=== PATIENT | female | born 1980 | race African-American/Black ===

== ENCOUNTER 2017-12-27 20:39 | Emergency (ER) | payer SELFPAY ==
[~2017-12-27] VITALS: Ht 167.6 cm; Wt 133.4 kg
[2017-12-27 22:25] LABS: HEMATOCRIT 38.9 % (37.0-47.0); HEMOGLOBIN 12.1 g/dl (12.0-16.0); IMMATURE GRANULOCYTES 0.4 % (0.0-1.0); MEAN CELL VOLUME 73.8 fL CALC (80.0-100.0); MEAN CORPUSCULAR HGB CONC 31.1 g/L CALC (32.0-36.0); NEUT# 6.92 thou/uL (2.00-7.15); RED BLOOD COUNT 5.27 mill/uL (4.20-5.60); RED CELL DISTRI WIDTH 13.7 % (11.5-15.5)
[2017-12-27 22:35] LABS: INFLUENZA A NONE DETECTED (NONE DETECT); INFLUENZA B NONE DETECTED (NONE DETECT)
[2017-12-27 23:11] VITALS: BP 130/81
== END 2017-12-27 23:27 | disposition home or self-care (01) | DRG 866 ==
LOC: ED 20:39
PROVIDERS: Family Medicine
DX: B34.9 Viral infection, unspecified (principal); E11.9 Type 2 diabetes mellitus without complications; I10 Essential (primary) hypertension

== ENCOUNTER 2018-04-04 18:44 | Emergency (ER) | payer OTHER ==
[~2018-04-04] VITALS: Ht 167.6 cm; Wt 131.0 kg
[2018-04-04] MEDS ORDERED: TRAMADOL HCL50 MG PO (19:06)
[2018-04-04] MEDS ORDERED: MOTRIN800 MG PO (19:06)
[2018-04-04] MEDS ORDERED: CLINDAMYCIN300 M1 PO (19:06)
[2018-04-04 19:44] VITALS: BP 120/62
== END 2018-04-04 19:25 | disposition home or self-care (01) | DRG 159 ==
LOC: ED 18:44
DX: K02.9 Dental caries, unspecified (principal); K04.7 Periapical abscess without sinus; I10 Essential (primary) hypertension; E11.9 Type 2 diabetes mellitus without complications

== ENCOUNTER 2020-02-12 | Emergency (ER) | payer SELFPAY ==
[~2020-02-12] MED LIST: CLINDAMYCIN300 M1 PO; MOTRIN800 MG PO; TRAMADOL HCL50 MG PO
[2020-02-12 19:35] LABS: HEMATOCRIT 39.2 % (37.0-47.0); IMMATURE GRANULOCYTES 0.3 % (0.0-5.0); MEAN CELL VOLUME 73.8 fL CALC (80.0-100.0); MEAN CORPUSCULAR HGB 22.6 pG CALC (26.0-32.0); MEAN CORPUSCULAR HGB CONC 30.6 g/dL CAL (32.0-36.0); NEUT# 5.5 thou/uL (2.00-7.15); RED BLOOD COUNT 5.31 mill/uL (4.20-5.60)
[2020-02-12 19:52] LABS: ALBUMIN 3.9 g/dL (3.2-5.0); ALKALINE PHOSPHATASE 113 u/l (38-126); ANION GAP 15 (6-22 (CALC)); BILIRUBIN, TOTAL 0.3 mg/dL (0.0-1.4); BUN 8 mg/dL (7-17); BUN/CREATININE RATIO 14 (12-20 (CALC)); CARBON DIOXIDE 24 mmol/l (22-30); CHLORIDE 99 mmol/l (95-108); CREATININE 0.5 mg/dL (0.5-1.0); GFR > 60 ML/MIN (>=60 (CALC)); GFR FOR AFR.AMER. > 60 ML/MIN (>=60 (CALC)); SGOT/AST 40 u/l (14-36); SODIUM 133 mmol/l (137-146); TOTAL PROTEIN 7.9 g/dL (6.3-8.2)
[2020-02-12] MEDS ORDERED: LORTAB 1010 MG PO (20:03)
[2020-02-12] MEDS ORDERED: BACTRIM DS1 TAB PO (20:03)
== END 2020-02-12 20:15 | disposition home or self-care (01) | DRG 603 ==
PROVIDERS: Emergency Medicine
PROC: 0H9MXZZ Drainage of Right Foot Skin, External Approach (ICD-10-PCS; principal; 2020-02-12)
DX: L02.611 Cutaneous abscess of right foot (principal); I10 Essential (primary) hypertension; E11.9 Type 2 diabetes mellitus without complications; B95.7 Other staphylococcus as the cause of diseases classified elsewhere

== ENCOUNTER 2020-03-14 09:57 | Emergency (ER) | payer SELFPAY ==
[~2020-03-14] VITALS: Ht 167.6 cm; Wt 95.5 kg
[~2020-03-14 09:57] MED LIST changes: +BACTRIM DS1 TAB PO; +LORTAB 1010 MG PO
[2020-03-14] MEDS ORDERED: ULTRAM50 MG PO (10:26)
[2020-03-14 10:47] VITALS: BP 144/74
== END 2020-03-14 10:44 | disposition home or self-care (01) | DRG 552 ==
LOC: ED 09:57
DX: M54.31 Sciatica, right side (principal); I10 Essential (primary) hypertension; E11.9 Type 2 diabetes mellitus without complications

== ENCOUNTER 2020-07-25 21:16 | Emergency (ER) | payer BC ==
[~2020-07-25] VITALS: Ht 167.6 cm; Wt 124.4 kg
[~2020-07-25 21:16] MED LIST changes: +ULTRAM50 MG PO
[2020-07-25 22:16] LABS: HEMATOCRIT 37.6 % (37.0-47.0); HEMOGLOBIN 11.3 g/dl (12.0-16.0); IMMATURE GRANULOCYTES 0.2 % (0.0-5.0); MEAN CELL VOLUME 74.3 fL CALC (80.0-100.0); MEAN CORPUSCULAR HGB 22.3 pG CALC (26.0-32.0); MEAN CORPUSCULAR HGB CONC 30.1 g/dL CAL (32.0-36.0); NEUT# 4.97 thou/uL (2.00-7.15); RED BLOOD COUNT 5.06 mill/uL (4.20-5.60); RED CELL DISTRI WIDTH 14.3 % (11.5-15.5)
[2020-07-25 22:20] LABS: URINE BILIRUBIN - DIPSTICK NEGATIVE (NEGATIVE); URINE BLOOD DIPSTICK NEGATIVE (NEGATIVE); URINE COLOR YELLOW; URINE GLUCOSE - DIPSTICK >=1000 mg/dL (NEGATIVE); URINE KETONE NEGATIVE (NEGATIVE); URINE LEUK ESTERASE NEGATIVE (NEGATIVE); URINE NITRITE - DIPSTICK NEGATIVE (Negative); URINE PH 6.5 (4.5-8.0); URINE PROTEIN - DIPSTICK NEGATIVE (NEG-TRACE); URINE UROBILINOGEN - DIPSTICK 0.2 E.U./dL (0.2)
[2020-07-25 22:24] VITALS: BP 167/103
[2020-07-25 22:28] LABS: ALBUMIN 3.7 g/dL (3.2-5.0); ALKALINE PHOSPHATASE 104 u/l (38-126); AMYLASE 42 u/l (30-110); BILIRUBIN, TOTAL 0.4 mg/dL (0.0-1.4); BUN 8 mg/dL (7-17); BUN/CREATININE RATIO 14 (12-20 (CALC)); CHLORIDE 99 mmol/l (95-108); CREATININE 0.6 mg/dL (0.5-1.0); GFR > 60 ML/MIN (>=60 (CALC)); GFR FOR AFR.AMER. > 60 ML/MIN (>=60 (CALC)); LIPASE 144 u/l (23-300); POTASSIUM 3.4 mmol/l (3.5-5.1); SGOT/AST 44 u/l (14-36); SODIUM 138 mmol/l (137-146); TOTAL PROTEIN 7.6 g/dL (6.3-8.2)
[2020-07-25 22:29] LABS: ANION GAP 11 (6-22 (CALC)); CARBON DIOXIDE 31 mmol/l (22-30)
[2020-07-25] MEDS ORDERED: ONDANSETRON ODT8 MG PO (22:49)
== END 2020-07-25 23:05 | disposition home or self-care (01) | DRG 392 ==
LOC: ED 21:16
PROVIDERS: Family Medicine
DX: R11.10 Vomiting, unspecified (principal); I10 Essential (primary) hypertension; E11.9 Type 2 diabetes mellitus without complications

== ENCOUNTER 2020-09-29 00:43 | Emergency (ER) | payer BC ==
[~2020-09-29] VITALS: Ht 167.6 cm; Wt 93.0 kg
[~2020-09-29 00:43] MED LIST changes: +ONDANSETRON ODT8 MG PO
[2020-09-29] MEDS ORDERED: LIPITOR10 M1 PO (01:13)
[2020-09-29] MEDS ORDERED: CETIRIZINE10 MG PO (01:15)
[2020-09-29] MEDS ORDERED: FIORICET 50-3001 CAP (01:15)
[2020-09-29] MEDS ORDERED: HUMALOG KW100 UNIT/M (01:16)
[2020-09-29] MEDS ORDERED: EPIPEN 2-P0.3 MG/0.3 (01:16)
[2020-09-29] MEDS ORDERED: LEVEMIR100 UNIT/M SC (01:17)
[2020-09-29] MEDS ORDERED: METOPROL TAR25 MG PO (01:19)
[2020-09-29] MEDS ORDERED: HYZAAR1 TAB PO (01:19)
[2020-09-29] MEDS ORDERED: OMEPRAZOLE DR40 MG PO (01:20)
[2020-09-29] MEDS ORDERED: QUETIAPINE FUM100 MG PO (01:21)
[2020-09-29] MEDS ORDERED: ZITHROMAX250 MG PO ×2 (02:10→13:20)
[2020-09-29 02:35] VITALS: BP 138/84
== END 2020-09-29 02:40 | disposition home or self-care (01) | DRG 179 ==
LOC: ED 00:43
DX: U07.1 COVID-19 (principal); J20.8 Acute bronchitis due to other specified organisms; R43.9 Unspecified disturbances of smell and taste; I10 Essential (primary) hypertension; E11.9 Type 2 diabetes mellitus without complications; Z87.01 Personal history of pneumonia (recurrent); Z79.4 Long term (current) use of insulin

== ENCOUNTER 2020-12-26 17:10 | Emergency (ER) | payer BC ==
[~2020-12-26] VITALS: Ht 167.6 cm; Wt 92.0 kg
[~2020-12-26 17:10] MED LIST changes: +CETIRIZINE10 MG PO; +EPIPEN 2-P0.3 MG/0.3; +FIORICET 50-3001 CAP; +HUMALOG KW100 UNIT/M; +HYZAAR1 TAB PO; +LEVEMIR100 UNIT/M SC; +LIPITOR10 M1 PO; +METOPROL TAR25 MG PO; +OMEPRAZOLE DR40 MG PO; +QUETIAPINE FUM100 MG PO; +ZITHROMAX250 MG PO
[2020-12-26] MEDS ORDERED: NITROGLYCERIN0.4 MG SL (18:49)
[2020-12-26] MEDS ORDERED: VOLTAREN - GENE75 MG PO (19:39)
[2020-12-26 19:50] VITALS: BP 133/80
== END 2020-12-26 19:50 | disposition home or self-care (01) | DRG 558 ==
LOC: ED 17:10
DX: M77.8 Other enthesopathies, not elsewhere classified (principal); I10 Essential (primary) hypertension; E11.9 Type 2 diabetes mellitus without complications; Z79.4 Long term (current) use of insulin

== ENCOUNTER 2021-05-12 22:22 | Emergency (ER) | payer SELFPAY ==
[~2021-05-12 22:22] MED LIST changes: +NITROGLYCERIN0.4 MG SL; +VOLTAREN - GENE75 MG PO
[2021-05-12] MEDS ORDERED: HUMALOG KW100 UNIT/M (23:48)
[2021-05-12] MEDS ORDERED: MECLIZINE25 MG PO (23:50)
[2021-05-12] MEDS ORDERED: OMEPRAZOLE DR40 MG PO (23:52)
[2021-05-12] MEDS ORDERED: LEVEMIR100 UNIT SC (23:53)
[2021-05-12] MEDS ORDERED: ACETAMINOP160 MG/5 M PO (23:53)
[2021-05-13 01:25] LABS: HEMATOCRIT 37.6 % (37.0-47.0); HEMOGLOBIN 11.4 g/dl (12.0-16.0); IMMATURE GRANULOCYTES 0.6 % (0.0-5.0); MEAN CELL VOLUME 73.7 fL CALC (80.0-100.0); MEAN CORPUSCULAR HGB 22.4 pG CALC (26.0-32.0); MEAN CORPUSCULAR HGB CONC 30.3 g/dL CAL (32.0-36.0); NEUT# 4.47 thou/uL (2.00-7.15); RED BLOOD COUNT 5.1 mill/uL (4.20-5.60); RED CELL DISTRI WIDTH 14.4 % (11.5-15.5)
[2021-05-13 01:29] LABS: URINE BILIRUBIN - DIPSTICK NEGATIVE (NEGATIVE); URINE BLOOD DIPSTICK NEGATIVE (NEGATIVE); URINE COLOR YELLOW; URINE GLUCOSE - DIPSTICK >=1000 mg/dL (NEGATIVE); URINE KETONE NEGATIVE (NEGATIVE); URINE LEUK ESTERASE TRACE (NEGATIVE); URINE NITRITE - DIPSTICK NEGATIVE (Negative); URINE PH 6.5 (4.5-8.0); URINE PROTEIN - DIPSTICK NEGATIVE (NEG-TRACE); URINE UROBILINOGEN - DIPSTICK 0.2 E.U./dL (0.2)
[2021-05-13 01:38] LABS: ALBUMIN 3.9 g/dL (3.2-5.0); ALKALINE PHOSPHATASE 103 u/l (38-126); AMYLASE 47 u/l (30-110); ANION GAP 11 (6-22 (CALC)); BILIRUBIN, TOTAL 0.4 mg/dL (0.0-1.4); BUN 7 mg/dL (7-17); BUN/CREATININE RATIO 12 (12-20 (CALC)); CARBON DIOXIDE 30 mmol/l (22-30); CHLORIDE 96 mmol/l (95-108); CREATININE 0.6 mg/dL (0.5-1.0); GFR > 60 ML/MIN (>=60 (CALC)); GFR FOR AFR.AMER. > 60 ML/MIN (>=60 (CALC)); LIPASE 137 u/l (23-300); POTASSIUM 3.3 mmol/l (3.5-5.1); SGOT/AST 31 u/l (14-36); SODIUM 134 mmol/l (137-146); TOTAL PROTEIN 8.6 g/dL (6.3-8.2)
[2021-05-13] MEDS ORDERED: TORADOL PO (03:49)
[2021-05-13 03:54] VITALS: BP 150/70
== END 2021-05-13 04:11 | disposition home or self-care (01) | DRG 392 ==
LOC: ED 22:22
PROVIDERS: Family Medicine
DX: R10.11 Right upper quadrant pain (principal); R10.31 Right lower quadrant pain; I10 Essential (primary) hypertension; E11.9 Type 2 diabetes mellitus without complications; Z79.4 Long term (current) use of insulin; Z90.49 Acquired absence of other specified parts of digestive tract
CPT/HCPCS: Q9967

== ENCOUNTER 2022-04-29 15:22 | Emergency (ER) | payer SELFPAY ==
[~2022-04-29] VITALS: Ht 167.6 cm; Wt 122.0 kg
[~2022-04-29 15:22] MED LIST changes: +ACETAMINOP160 MG/5 M PO; +LEVEMIR100 UNIT SC; +MECLIZINE25 MG PO; +TORADOL PO
[2022-04-29 15:29] VITALS: BP 179/108
[2022-04-29 15:50] LABS: HEMATOCRIT 40.5 % (37.0-47.0); HEMOGLOBIN 12.2 g/dl (12.0-16.0); IMMATURE GRANULOCYTES 0.1 % (0.0-5.0); MEAN CELL VOLUME 74.3 fL CALC (80.0-100.0); MEAN CORPUSCULAR HGB 22.4 pG CALC (26.0-32.0); MEAN CORPUSCULAR HGB CONC 30.1 g/dL CAL (32.0-36.0); NEUT# 4.34 thou/uL (2.00-7.15); RED BLOOD COUNT 5.45 mill/uL (4.20-5.60); RED CELL DISTRI WIDTH 13.3 % (11.5-15.5)
[2022-04-29 16:01] VITALS: BP 154/86
[2022-04-29 16:11] LABS: ALBUMIN 3.9 g/dL (3.2-5.0); ALKALINE PHOSPHATASE 109 u/l (38-126); ANION GAP 11 (6-22 (CALC)); BILIRUBIN, TOTAL 0.4 mg/dL (0.0-1.4); BUN 6 mg/dL (7-17); BUN/CREATININE RATIO 10 (12-20 (CALC)); CARBON DIOXIDE 28 mmol/l (22-30); CHLORIDE 99 mmol/l (95-108); CREATININE 0.5 mg/dL (0.5-1.0); GFR FOR AFR.AMER. > 60 ML/MIN (>=60 (CALC)); GFR OTHER RACES > 60 ML/MIN (>=60 (CALC)); LIPASE 99 u/l (23-300); POTASSIUM 3.3 mmol/l (3.5-5.1); SGOT/AST 32 u/l (14-36); SODIUM 134 mmol/l (137-146); TOTAL PROTEIN 8.1 g/dL (6.3-8.2)
[2022-04-29 16:16] VITALS: BP 146/85
[2022-04-29 16:31] VITALS: BP 144/74
[2022-04-29 16:46] VITALS: BP 146/81
[2022-04-29 17:45] LABS: URINE BILIRUBIN - DIPSTICK NEGATIVE (NEGATIVE); URINE BLOOD DIPSTICK NEGATIVE (NEGATIVE); URINE COLOR YELLOW; URINE GLUCOSE - DIPSTICK >=1000 mg/dL (NEGATIVE); URINE KETONE TRACE mg/dL (NEGATIVE); URINE LEUK ESTERASE NEGATIVE (NEGATIVE); URINE NITRITE - DIPSTICK NEGATIVE (Negative); URINE PROTEIN - DIPSTICK NEGATIVE (NEG-TRACE); URINE UROBILINOGEN - DIPSTICK 0.2 E.U./dL (0.2)
[2022-04-29 18:18] VITALS: BP 125/67
== END 2022-04-29 18:15 | disposition home or self-care (01) | DRG 392 ==
LOC: ED 15:22
PROVIDERS: Family Medicine
DX: R10.11 Right upper quadrant pain (principal); I10 Essential (primary) hypertension; E11.9 Type 2 diabetes mellitus without complications; E66.9 Obesity, unspecified; E28.2 Polycystic ovarian syndrome; Z79.4 Long term (current) use of insulin

== ENCOUNTER 2022-06-01 18:17 | Emergency (ER) | payer SELFPAY ==
[2022-06-01] VITALS (11 sets, daily range): BP systolic 131–181; BP diastolic 74–155
[~2022-06-01] VITALS: Ht 167.6 cm; Wt 136.3 kg
[2022-06-01 19:23] LABS: HEMATOCRIT 38.6 % (37.0-47.0); HEMOGLOBIN 12.1 g/dl (12.0-16.0); IMMATURE GRANULOCYTES 0.1 % (0.0-5.0); MEAN CELL VOLUME 71.6 fL CALC (80.0-100.0); MEAN CORPUSCULAR HGB 22.4 pG CALC (26.0-32.0); MEAN CORPUSCULAR HGB CONC 31.3 g/dL CAL (32.0-36.0); NEUT# 5.34 thou/uL (2.00-7.15); RED BLOOD COUNT 5.39 mill/uL (4.20-5.60); RED CELL DISTRI WIDTH 13.6 % (11.5-15.5)
[2022-06-01 19:40] LABS: ALBUMIN 3.7 g/dL (3.2-5.0); ALKALINE PHOSPHATASE 106 u/l (38-126); ANION GAP 9 (6-22 (CALC)); BILIRUBIN, TOTAL 0.2 mg/dL (0.0-1.4); BUN 9 mg/dL (7-17); BUN/CREATININE RATIO 14 (12-20 (CALC)); CARBON DIOXIDE 29 mmol/l (22-30); CHLORIDE 102 mmol/l (95-108); CREATININE 0.7 mg/dL (0.5-1.0); GFR FOR AFR.AMER. > 60 ML/MIN (>=60 (CALC)); GFR OTHER RACES > 60 ML/MIN (>=60 (CALC)); POTASSIUM 4.1 mmol/l (3.5-5.1); SGOT/AST 30 u/l (14-36); SODIUM 136 mmol/l (137-146)
[2022-06-01] MEDS ORDERED: FIORICET PO (20:51)
== END 2022-06-01 21:12 | disposition home or self-care (01) | DRG 305 ==
LOC: ED 18:17
PROVIDERS: Internal Medicine
DX: I10 Essential (primary) hypertension (principal); E11.9 Type 2 diabetes mellitus without complications; Z79.4 Long term (current) use of insulin

== ENCOUNTER 2022-09-22 21:33 | Emergency (ER) | payer SELFPAY ==
[~2022-09-22] VITALS: Ht 167.6 cm; Wt 136.4 kg
[~2022-09-22 21:33] MED LIST changes: +FIORICET PO
[2022-09-22 22:30] LABS: URINE BILIRUBIN - DIPSTICK NEGATIVE (NEGATIVE); URINE BLOOD DIPSTICK TRACE-INTACT (NEGATIVE); URINE COLOR YELLOW; URINE GLUCOSE - DIPSTICK >=1000 mg/dL (NEGATIVE); URINE KETONE TRACE mg/dL (NEGATIVE); URINE LEUK ESTERASE NEGATIVE (NEGATIVE); URINE PROTEIN - DIPSTICK 30 mg/dL (NEG-TRACE); URINE SPECIFIC GRAVITY >=1.030; URINE UROBILINOGEN - DIPSTICK 0.2 E.U./dL (0.2)
[2022-09-22 22:34] LABS: URINE NITRITE - DIPSTICK NEGATIVE (Negative)
[2022-09-22 22:40] LABS: URINE SQUAMOUS EPITHELIAL CELL FEW EPI/hpf (0-FEW)
[2022-09-22 23:40] VITALS: BP 181/101
[2022-09-22 23:45] VITALS: BP 169/114
[2022-09-23] VITALS: BP 161/106
[2022-09-23 00:15] VITALS: BP 164/110
[2022-09-23 00:30] VITALS: BP 158/105
[2022-09-23] MEDS ORDERED: KEFLEX500 MG PO (00:38)
[2022-09-23 00:45] VITALS: BP 145/109
[2022-09-23 00:47] VITALS: BP 142/89
[2022-09-23 00:58] VITALS: BP 142/89
== END 2022-09-23 00:58 | disposition home or self-care (01) | DRG 153 ==
LOC: ED 21:33
PROVIDERS: Emergency Medicine
DX: J06.9 Acute upper respiratory infection, unspecified (principal); I10 Essential (primary) hypertension

== ENCOUNTER 2022-10-11 08:54 | Emergency (ER) | payer SELFPAY ==
[~2022-10-11] VITALS: Ht 167.6 cm; Wt 136.0 kg
[2022-10-11] VITALS (10 sets, daily range): BP systolic 145–191; BP diastolic 71–108
[~2022-10-11 08:54] MED LIST changes: +KEFLEX500 MG PO
[2022-10-11 10:51] LABS: BASO% 0.5 % (0-3); EOS% 1.7 % (0-8); HEMATOCRIT 36.9 % (37.0-47.0); IMMATURE GRANULOCYTES 0.1 % (0.0-5.0); LYMPH% 29.1 % (15-41); MEAN CELL VOLUME 73.1 fL CALC (80.0-100.0); MEAN CORPUSCULAR HGB 23.8 pG CALC (26.0-32.0); MEAN CORPUSCULAR HGB CONC 32.5 g/dL CAL (32.0-36.0); MONO% 7.7 % (2-13); NEUT# 4.67 thou/uL (2.00-7.15); NEUT% 60.9 % (42-76); RED BLOOD COUNT 5.05 mill/uL (4.20-5.60); RED CELL DISTRI WIDTH 13.4 % (11.5-15.5)
[2022-10-11 10:58] LABS: URINE BILIRUBIN - DIPSTICK NEGATIVE (NEGATIVE); URINE BLOOD DIPSTICK NEGATIVE (NEGATIVE); URINE COLOR YELLOW; URINE GLUCOSE - DIPSTICK >=1000 mg/dL (NEGATIVE); URINE KETONE NEGATIVE (NEGATIVE); URINE LEUK ESTERASE NEGATIVE (NEGATIVE); URINE PH 5.5 (4.5-8.0); URINE PROTEIN - DIPSTICK NEGATIVE (NEG-TRACE); URINE UROBILINOGEN - DIPSTICK 0.2 E.U./dL (0.2)
[2022-10-11 11:01] LABS: ALBUMIN 3.7 g/dL (3.2-5.0); ALKALINE PHOSPHATASE 103 u/l (38-126); ANION GAP 10 (6-22 (CALC)); BILIRUBIN, TOTAL 0.2 mg/dL (0.0-1.4); BUN 5 mg/dL (7-17); BUN/CREATININE RATIO 10 (12-20 (CALC)); CARBON DIOXIDE 29 mmol/l (22-30); CHLORIDE 99 mmol/l (95-108); CREATININE 0.5 mg/dL (0.5-1.0); GFR FOR AFR.AMER. > 60 ML/MIN (>=60 (CALC)); GFR OTHER RACES > 60 ML/MIN (>=60 (CALC)); LIPASE 124 u/l (23-300); POTASSIUM 3.7 mmol/l (3.5-5.1); SGOT/AST 35 u/l (14-36); SODIUM 134 mmol/l (137-146); TOTAL PROTEIN 7.4 g/dL (6.3-8.2)
[2022-10-11 11:04] LABS: URINE NITRITE - DIPSTICK NEGATIVE (Negative)
[2022-10-11] MEDS ORDERED: PROTONIX40 M2 PO ×2 (16:32→16:42)
[2022-10-11] MEDS ORDERED: LORTAB 5/3255 MG PO (16:32)
== END 2022-10-11 17:07 | disposition home or self-care (01) | DRG 392 ==
LOC: ED 08:54
PROVIDERS: Family Medicine
DX: K21.9 Gastro-esophageal reflux disease without esophagitis (principal); R10.13 Epigastric pain
CPT/HCPCS: Q9967; S0164

== ENCOUNTER 2023-03-08 10:19 | Emergency (ER) | payer OTHER ==
[~2023-03-08] VITALS: Ht 167.6 cm; Wt 131.5 kg
[2023-03-08] VITALS (10 sets, daily range): BP systolic 120–170; BP diastolic 61–118
[~2023-03-08 10:19] MED LIST changes: +LORTAB 5/3255 MG PO; +PROTONIX40 M2 PO
[2023-03-08 11:44] LABS: BASO% 0.5 % (0-3); EOS% 1.7 % (0-8); HEMATOCRIT 40.8 % (37.0-47.0); HEMOGLOBIN 12.5 g/dl (12.0-16.0); IMMATURE GRANULOCYTES 0.2 % (0.0-5.0); LYMPH% 29.4 % (15-41); MEAN CELL VOLUME 73.2 fL CALC (80.0-100.0); MEAN CORPUSCULAR HGB 22.4 pG CALC (26.0-32.0); MEAN CORPUSCULAR HGB CONC 30.6 g/dL CAL (32.0-36.0); MONO% 8.3 % (2-13); NEUT# 4.98 thou/uL (2.00-7.15); NEUT% 59.9 % (42-76); RED BLOOD COUNT 5.57 mill/uL (4.20-5.60); RED CELL DISTRI WIDTH 13.8 % (11.5-15.5)
[2023-03-08 12:05] LABS: ALBUMIN 3.8 g/dL (3.2-5.0); ALKALINE PHOSPHATASE 120 u/l (38-126); ANION GAP 15 (6-22 (CALC)); BILIRUBIN, TOTAL 0.3 mg/dL (0.02-1.3); BUN 7 mg/dL (7-17); BUN/CREATININE RATIO 12 (12-20 (CALC)); C-REACTIVE PROTEIN 3.5 mg/dL (0-0.9); CARBON DIOXIDE 26 mmol/l (22-30); CHLORIDE 96 mmol/l (95-108); CREATININE 0.6 mg/dL (0.5-1.0); GFR FOR AFR.AMER. > 60 ML/MIN (>=60 (CALC)); GFR OTHER RACES > 60 ML/MIN (>=60 (CALC)); POTASSIUM 4.1 mmol/l (3.5-5.1); SGOT/AST 46 u/l (14-36); SODIUM 133 mmol/l (137-146); TOTAL PROTEIN 7.7 g/dL (6.3-8.2)
[2023-03-08] MEDS ORDERED: NEURONTIN100 MG PO (13:33)
[2023-03-08] MEDS ORDERED: NAPROXEN500 MG PO (13:33)
== END 2023-03-08 14:31 | disposition home or self-care (01) | DRG 74 ==
LOC: ED 10:19
PROVIDERS: Nurse Practitioner
DX: E11.42 Type 2 diabetes mellitus with diabetic polyneuropathy (principal); E11.65 Type 2 diabetes mellitus with hyperglycemia; I10 Essential (primary) hypertension; T38.3X6A Underdosing of insulin and oral hypoglycemic [antidiabetic] drugs, initial encounter; Z91.128 Patient's intentional underdosing of medication regimen for other reason; Z79.4 Long term (current) use of insulin

== ENCOUNTER 2023-11-21 21:05 | Emergency (ER) | payer OTHER ==
[~2023-11-21] VITALS: Ht 167.6 cm; Wt 125.0 kg
[~2023-11-21 21:05] MED LIST changes: +NAPROXEN500 MG PO; +NEURONTIN100 MG PO
[2023-11-21 21:18] VITALS: BP 145/87
[2023-11-21 21:30] VITALS: BP 152/95
[2023-11-21] MEDS ORDERED: ORPHENADRINE CITRATE 30 MG/ML AMP IM ONE (21:35)
[2023-11-21] MEDS ORDERED: KETOROLAC TROMETHAMINE 30 MG/ML SDV IM ONE (21:35)
[2023-11-21 21:45] VITALS: BP 159/98
[2023-11-21 22:00] VITALS: BP 162/98
[2023-11-21] MEDS ORDERED: MEDDOSEPAK PO (22:55)
[2023-11-21] MEDS ORDERED: MELOXICAM7.5 MG PO (22:55)
[2023-11-21 23:15] VITALS: BP 162/98
== END 2023-11-21 23:15 | disposition home or self-care (01) | DRG 639 ==
LOC: ED 21:05
DX: E11.69 Type 2 diabetes mellitus with other specified complication (principal); M75.01 Adhesive capsulitis of right shoulder; I10 Essential (primary) hypertension; Z79.4 Long term (current) use of insulin

== ENCOUNTER 2023-11-25 11:58 | Emergency (ER) | payer OTHER ==
[~2023-11-25] VITALS: Ht 167.6 cm; Wt 125.6 kg
[~2023-11-25 11:58] MED LIST changes: +MEDDOSEPAK PO; +MELOXICAM7.5 MG PO
[2023-11-25 14:05] LABS: BASO% 0.2 % (0-3); EOS% 0.1 % (0-8); HEMATOCRIT 42.2 % (37.0-47.0); HEMOGLOBIN 13.3 g/dl (12.0-16.0); IMMATURE GRANULOCYTES 0.2 % (0.0-5.0); LYMPH% 11.4 % (15-41); MEAN CELL VOLUME 74.4 fL CALC (80.0-100.0); MEAN CORPUSCULAR HGB 23.5 pG CALC (26.0-32.0); MEAN CORPUSCULAR HGB CONC 31.5 g/dL CAL (32.0-36.0); MONO% 8.5 % (2-13); NEUT# 7.56 thou/uL (2.00-7.15); NEUT% 79.6 % (42-76); RED BLOOD COUNT 5.67 mill/uL (4.20-5.60); RED CELL DISTRI WIDTH 13.2 % (11.5-15.5)
[2023-11-25 14:17] LABS: ALBUMIN 3.7 g/dL (3.2-5.0); ALKALINE PHOSPHATASE 114 u/l (38-126); ANION GAP 13 (6-22 (CALC)); BILIRUBIN, TOTAL 0.4 mg/dL (0.02-1.3); BUN 7 mg/dL (7-17); BUN/CREATININE RATIO 10 (12-20 (CALC)); CARBON DIOXIDE 27 mmol/l (22-30); CHLORIDE 97 mmol/l (95-108); CREATININE 0.6 mg/dL (0.5-1.0); GFR FOR AFR.AMER. > 60 ML/MIN (>=60 (CALC)); GFR OTHER RACES > 60 ML/MIN (>=60 (CALC)); SGOT/AST 44 u/l (14-36); SODIUM 133 mmol/l (137-146); TOTAL PROTEIN 7.7 g/dL (6.3-8.2)
[2023-11-25] MEDS ORDERED: ONDANSETRON HCl 4 MG/2 ML SDV IV STA (14:24)
[2023-11-25] MEDS ORDERED: SODIUM CHLORIDE 0.9% 1,000 ML IV STA (14:24)
[2023-11-25 14:31] LABS: AMYLASE 31 u/l (30-110); LIPASE 54 u/l (23-300)
[2023-11-25 17:44] LABS: URINE BLOOD DIPSTICK Small (NEGATIVE); URINE GLUCOSE - DIPSTICK >=1000 mg/dL (NEGATIVE); URINE KETONE 15 mg/dL (NEGATIVE); URINE LEUK ESTERASE Negative (NEGATIVE); URINE NITRITE - DIPSTICK Negative (Negative); URINE PROTEIN - DIPSTICK 100 mg/dL (NEG-TRACE); URINE SPECIFIC GRAVITY 1.025
[2023-11-25] MEDS ORDERED: KETOROLAC TROMETHAMINE 30 MG/ML SDV IV ONE (17:45)
[2023-11-25] MEDS ORDERED: METOCLOPRAMIDE HCL 10 MG/2 ML SDV IV ONE (17:45)
[2023-11-25] MEDS ORDERED: DiphenhydrAMINE HCL 50 MG/ML SDV IV ONE (17:45)
[2023-11-25 17:46] LABS: URINE COLOR Yellow
[2023-11-25 17:50] LABS: URINE BACTERIA MODERATE hpf; URINE SQUAMOUS EPITHELIAL CELL MANY EPI/hpf (0-FEW); URINE WBC 0-2 WBC/hpf (0-5)
[2023-11-25 17:56] VITALS: BP 136/81
[2023-11-25 18:00] VITALS: BP 170/108
[2023-11-25] MEDS ORDERED: CIPROFLOXACN500 MG PO (18:14)
[2023-11-25] MEDS ORDERED: ONDANSETRON4 MG PO (18:14)
[2023-11-25 18:15] VITALS: BP 137/90
[2023-11-25 18:19] VITALS: BP 157/105
[2023-11-25 18:29] VITALS: BP 142/95
[2023-11-25 18:30] VITALS: BP 142/95
== END 2023-11-25 18:30 | disposition home or self-care (01) | DRG 392 ==
LOC: ED 11:58
PROVIDERS: Emergency Medicine; Nurse Practitioner
DX: R19.7 Diarrhea, unspecified (principal); R11.2 Nausea with vomiting, unspecified; N39.0 Urinary tract infection, site not specified; I10 Essential (primary) hypertension; E11.9 Type 2 diabetes mellitus without complications; Z79.4 Long term (current) use of insulin

== ENCOUNTER 2024-04-18 09:12 | Emergency (ER) | payer OTHER ==
[~2024-04-18] VITALS: Ht 167.6 cm; Wt 122.0 kg
[~2024-04-18 09:12] MED LIST changes: +CIPROFLOXACN500 MG PO; +ONDANSETRON4 MG PO
[2024-04-18 10:00] VITALS: BP 180/113
[2024-04-18 10:37] LABS: BASO% 0.5 % (0-3); EOS% 1.5 % (0-8); IMMATURE GRANULOCYTES 0.2 % (0.0-5.0); LYMPH% 29.5 % (15-41); MEAN CELL VOLUME 74.3 fL CALC (80.0-100.0); MEAN CORPUSCULAR HGB 23.2 pG CALC (26.0-32.0); MEAN CORPUSCULAR HGB CONC 31.2 g/dL CAL (32.0-36.0); MONO% 8.6 % (2-13); NEUT# 3.88 thou/uL (2.00-7.15); NEUT% 59.7 % (42-76); RED BLOOD COUNT 4.83 mill/uL (4.20-5.60); RED CELL DISTRI WIDTH 13.7 % (11.5-15.5)
[2024-04-18 10:39] LABS: HEMATOCRIT 35.9 % (37.0-47.0); HEMOGLOBIN 11.2 g/dl (12.0-16.0)
[2024-04-18 10:57] LABS: ALBUMIN 3.4 g/dL (3.2-5.0); BILIRUBIN, TOTAL 0.3 mg/dL (0.02-1.3); CREATININE 0.6 mg/dL (0.5-1.0); POTASSIUM 3.4 mmol/l (3.5-5.1)
[2024-04-18] MEDS ORDERED: INSULIN REGULAR (HUMAN) 100 UNIT/ML INJ SC ONE (12:50)
[2024-04-18 13:05] VITALS: BP 169/94
[2024-04-18 13:15] VITALS: BP 161/97
== END 2024-04-18 13:25 | disposition home or self-care (01) | DRG 74 ==
LOC: ED 09:12
PROVIDERS: Family Medicine
DX: E11.42 Type 2 diabetes mellitus with diabetic polyneuropathy (principal); E11.65 Type 2 diabetes mellitus with hyperglycemia; I10 Essential (primary) hypertension; Z79.4 Long term (current) use of insulin; Z79.84 Long term (current) use of oral hypoglycemic drugs

== ENCOUNTER 2024-05-04 22:46 | Emergency (ER) | payer OTHER ==
[~2024-05-04] VITALS: Ht 167.6 cm; Wt 127.0 kg
[2024-05-04] MEDS ORDERED: SODIUM CHLORIDE 0.9% 1,000 ML IV STA (22:59)
[2024-05-04] MEDS ORDERED: Pantoprazole Sodium 40 MG VIAL (Protonix) IV STA (22:59)
[2024-05-04] MEDS ORDERED: PROMETHAZINE HCL 25 MG/ML AMP IV ONE (23:00)
[2024-05-04] MEDS ORDERED: KETOROLAC TROMETHAMINE 30 MG/ML SDV IV ONE (23:00)
[2024-05-04] MEDS ORDERED: LIDOCAINE VISCOUS 2% 15 ML UDC PO ONE (23:00)
[2024-05-04] MEDS ORDERED: ALUM & MAG HYDROX-SIMETHICONE 30 ML PO ONE (23:00)
[2024-05-04 23:36] LABS: BASO% 0.4 % (0-3); EOS% 0.9 % (0-8); HEMATOCRIT 39.1 % (37.0-47.0); HEMOGLOBIN 12.2 g/dl (12.0-16.0); IMMATURE GRANULOCYTES 0.2 % (0.0-5.0); LYMPH% 26.3 % (15-41); MEAN CELL VOLUME 73.8 fL CALC (80.0-100.0); MEAN CORPUSCULAR HGB CONC 31.2 g/dL CAL (32.0-36.0); MONO% 7.7 % (2-13); NEUT# 6.01 thou/uL (2.00-7.15); NEUT% 64.5 % (42-76); RED BLOOD COUNT 5.3 mill/uL (4.20-5.60); RED CELL DISTRI WIDTH 13.8 % (11.5-15.5)
[2024-05-04 23:37] VITALS: BP 143/90
[2024-05-04 23:40] LABS: URINE BILIRUBIN - DIPSTICK Negative (NEGATIVE); URINE BLOOD DIPSTICK Trace-lysed (NEGATIVE); URINE GLUCOSE - DIPSTICK 500 mg/dL (NEGATIVE); URINE KETONE Negative (NEGATIVE); URINE LEUK ESTERASE Negative (NEGATIVE); URINE NITRITE - DIPSTICK Negative (Negative); URINE PROTEIN - DIPSTICK Negative (NEG-TRACE); URINE SPECIFIC GRAVITY <=1.005; URINE UROBILINOGEN - DIPSTICK 0.2 E.U./dL (0.2)
[2024-05-04 23:42] LABS: URINE COLOR Yellow
[2024-05-04 23:46] VITALS: BP 174/110
[2024-05-04] MEDS ORDERED: NEURONTIN800 MG PO (23:46)
[2024-05-04 23:53] LABS: CREATININE 0.9 mg/dL (0.5-1.0); MAGNESIUM 1.6 mg/dL (1.6-2.3)
[2024-05-04 23:54] VITALS: BP 145/70
[2024-05-04] MEDS ORDERED: DiphenhydrAMINE HCL 50 MG/ML SDV IV ONE (23:55)
[2024-05-04 23:59] LABS: ALBUMIN 4.1 g/dL (3.2-5.0); BILIRUBIN, TOTAL 0.6 mg/dL (0.02-1.3); TOTAL PROTEIN 8.5 g/dL (6.3-8.2)
[2024-05-05 00:01] VITALS: BP 157/105
[2024-05-05] MEDS ORDERED: ONDANSETRON4 MG PO (00:09)
[2024-05-05] MEDS ORDERED: POTASSIUM CHLORIDE 20 MEQ/TAB PO ONE (00:10)
[2024-05-05] MEDS ORDERED: INSULIN REGULAR (HUMAN) 100 UNIT/ML INJ SC ONE (00:10)
[2024-05-05 00:30] VITALS: BP 150/83
== END 2024-05-05 00:23 | disposition home or self-care (01) | DRG 392 ==
LOC: ED 22:46
PROVIDERS: Family Medicine
DX: A08.4 Viral intestinal infection, unspecified (principal); E87.6 Hypokalemia; E11.65 Type 2 diabetes mellitus with hyperglycemia; I10 Essential (primary) hypertension; Z79.4 Long term (current) use of insulin; Z20.822 Contact with and (suspected) exposure to COVID-19
CPT/HCPCS: J2470